=== PATIENT | male | born 1955 | race Caucasian/White ===

== ENCOUNTER 2021-05-06 17:21 | Emergency (ER) | payer OTHER, MEDICAID ==
[~2021-05-06] VITALS: Ht 188 cm; Wt 215.5 kg
[2021-05-06] MEDS ORDERED: LANTUS SUBQ (17:49)
[2021-05-06] MEDS ORDERED: CARVEDILOL12.5 MG PO (17:50)
[2021-05-06] MEDS ORDERED: METOLAZONE 2.52.5 M1 PO (17:50)
[2021-05-06] MEDS ORDERED: LIPITOR40 MG PO (17:50)
[2021-05-06] MEDS ORDERED: PROAIR HFA8.5 GM INH (17:51)
[2021-05-06] MEDS ORDERED: FUROSEMIDE 80 M80 MG PO (17:51)
[2021-05-06] MEDS ORDERED: MELOXICAM15 MG PO (17:51)
[2021-05-06] MEDS ORDERED: SYMBICORT160 MCG/4. INH (17:51)
[2021-05-06] MEDS ORDERED: FLONASE 0.05%50 MCG NASAL (17:54)
[2021-05-06] MEDS ORDERED: METFORMIN HCL1000 M1 PO (17:54)
[2021-05-06] MEDS ORDERED: MACROBID 100 M100 MG PO (17:55)
[2021-05-06] MEDS ORDERED: DULOXETINE HCL60 MG PO (17:55)
[2021-05-06] MEDS ORDERED: POTASSIUM20 PO (17:55)
[2021-05-06] MEDS ORDERED: HUMALOG KW200 UNIT/1 SUBQ (18:14)
[2021-05-06] MEDS ORDERED: LANTUS SOL100 UNIT/1 SUBQ (18:15)
[2021-05-06] MEDS ORDERED: COMBIVENT RESPIM4 GM INH (18:15)
[2021-05-06] MEDS ORDERED: LUMIGAN2.5 M1 OPHTHALMIC (18:16)
[2021-05-06] MEDS ORDERED: LYRICA300 MG PO (18:16)
[2021-05-06] MEDS ORDERED: BRIMONIDINE 0.110 ML OPHTHALMIC (18:17)
[2021-05-06] MEDS ORDERED: HYDROCODON-ACE1 EAC7 PO (18:19)
[2021-05-06] MEDS ORDERED: NORFLEX100 MG PO (20:00)
[2021-05-06] MEDS ORDERED: MEDROLDOSEPACK PO (20:00)
[2021-05-06 20:33] VITALS: BP 134/50
[2021-05-07] MEDS ORDERED: PERCOCET PO (07:44)
== END 2021-05-06 20:34 | disposition home or self-care (01) ==
LOC: M.ERS 17:21
DX: M54.31 Sciatica, right side (principal); M47.896 Other spondylosis, lumbar region; I10 Essential (primary) hypertension; E78.00 Pure hypercholesterolemia, unspecified; J44.9 Chronic obstructive pulmonary disease, unspecified; G47.30 Sleep apnea, unspecified; E11.40 Type 2 diabetes mellitus with diabetic neuropathy, unspecified; Z79.4 Long term (current) use of insulin